=== PATIENT | female | born 1960 | race Caucasian/White ===

== ENCOUNTER 2019-09-10 12:17 | Emergency (ER) | payer SELFPAY ==
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
[2019-09-10 13:45] VITALS: BP 118/85
== END 2019-09-10 13:43 | disposition home or self-care (01) ==
LOC: ED 12:17
DX: S01.21XA Laceration without foreign body of nose, initial encounter (principal); S00.33XA Contusion of nose, initial encounter; V43.52XA Car driver injured in collision with other type car in traffic accident, initial encounter; Y92.410 Unspecified street and highway as the place of occurrence of the external cause; Z87.891 Personal history of nicotine dependence
CPT/HCPCS: 12011; 99282